=== PATIENT | male | born 1975 | race American Indian/Alaskan Native ===

== ENCOUNTER 2019-04-27 21:03 | Emergency (ER) | payer SELFPAY ==
--- NOTE | 2019-04-27 21:37 | Event Note ---
Date of service: 04/27/19 Face to Face: EMS documentation not available at time of chart dictation History obtained from patient's mother. Patient may have a history of psychiatric disease, she is not sure, he is brought to the hospital today by emergency medical services, as per mother, patient tried to jump out of a car, he's been responding to hallucinations, and he is disorganized. The patient appears to be psychotic in the emergency room. He does not exhibit decision- making capacity at this time. He is placed on a 1013 for psychosis, a psychiatric consultation is requested. He is made no endorsement of physical pain to myself or my colleagues. EKG, labs, CT scan brain pending. Mother has given verbal consent for chemical restraint if necessary. Vital Signs 04/27/19 22:00 Temperature 99.0 F Pulse Rate 93 H Respiratory 18 Rate Blood Pressure 162/111 [Left] O2 Sat by Pulse 96 Oximetry Lab Results 04/27/19 04/27/19 04/27/19 Range/Units 22:02 22:02 22:02 WBC 7.6 (4.5-11.0) K/mm3 RBC 4.34 (3.65-5.03) M/mm3 Hgb 13.4 (11.8-15.2) gm/dl Hct 40.0 (35.5-45.6) % MCV 92 (84-94) fl MCH 31 (28-32) pg MCHC 34 (32-34) % RDW 13.5 (13.2-15.2) % Plt Count 271 (140-440) K/mm3 Lymph % (Auto) 27.3 (13.4-35.0) % Mobile % (Auto) 7.7 H (0.0-7.3) % Eos % (Auto) 0.4 (0.0-4.3) % Baso % (Auto) 0.7 (0.0-1.8) % Lymph # 2.1 (1.2-5.4) K/mm3 Mobile # 0.6 (0.0-0.8) K/mm3 Eos # 0.0 (0.0-0.4) K/mm3 Baso # 0.0 (0.0-0.1) K/mm3 Seg Neutrophils % 63.9 (40.0-70.0) % Seg Neutrophils # 4.8 (1.8-7.7) K/mm3 Sodium 139 (137-145) mmol/L Potassium 2.9 L* (3.6-5.0) mmol/L Chloride 95.8 L (98-107) mmol/L Carbon Dioxide 25 (22-30) mmol/L Anion Gap 21 mmol/L BUN 15 (9-20) mg/dL Creatinine 1.0 (0.8-1.5) mg/dL Estimated GFR > 60 ml/min BUN/Creatinine Ratio 15 % Glucose 98 (75-100) mg/dL Calcium 9.6 (8.4-10.2) mg/dL Total Bilirubin 0.40 (0.1-1.2) mg/dL AST 43 H (5-40) units/L ALT 19 (7-56) units/L Alkaline Phosphatase 87 (35-129) units/L Total Creatine Kinase (55-170) units/L Troponin T < 0.010 (0.00-0.029) ng/mL Total Protein 7.1 (6.3-8.2) g/dL Albumin 4.5 (3.9-5) g/dL Albumin/Globulin Ratio 1.7 % Salicylates < 0.3 L (2.8-20.0) mg/dL Acetaminophen (10.0-30.0) ug/mL 04/27/19 04/27/19 Range/Units 22:02 22:02 WBC (4.5-11.0) K/mm3 RBC (3.65-5.03) M/mm3 Hgb (11.8-15.2) gm/dl Hct (35.5-45.6) % MCV (84-94) fl MCH (28-32) pg MCHC (32-34) % RDW (13.2-15.2) % Plt Count (140-440) K/mm3 Lymph % (Auto) (13.4-35.0) % Mobile % (Auto) (0.0-7.3) % Eos % (Auto) (0.0-4.3) % Baso % (Auto) (0.0-1.8) % Lymph # (1.2-5.4) K/mm3 Mobile # (0.0-0.8) K/mm3 Eos # (0.0-0.4) K/mm3 Baso # (0.0-0.1) K/mm3 Seg Neutrophils % (40.0-70.0) % Seg Neutrophils # (1.8-7.7) K/mm3 Sodium (137-145) mmol/L Potassium (3.6-5.0) mmol/L Chloride (98-107) mmol/L Carbon Dioxide (22-30) mmol/L Anion Gap mmol/L BUN (9-20) mg/dL Creatinine (0.8-1.5) mg/dL Estimated GFR ml/min BUN/Creatinine Ratio % Glucose (75-100) mg/dL Calcium (8.4-10.2) mg/dL Total Bilirubin (0.1-1.2) mg/dL AST (5-40) units/L ALT (7-56) units/L Alkaline Phosphatase (35-129) units/L Total Creatine Kinase 662 H (55-170) units/L Troponin T (0.00-0.029) ng/mL Total Protein (6.3-8.2) g/dL Albumin (3.9-5) g/dL Albumin/Globulin Ratio % Salicylates (2.8-20.0) mg/dL Acetaminophen < 5.0 L (10.0-30.0) ug/mL
[2019-04-27 22:24] LABS: Basophils % (Auto) 0.7 % (0.0-1.8); Eosinophils % (Auto) 0.4 % (0.0-4.3); Hemoglobin 13.4 gm/dl (11.8-15.2); Lymphocytes # (Auto) 2.1 K/mm3 (1.2-5.4); Lymphocytes % (Auto) 27.3 % (13.4-35.0); Mean Corpuscular HGB Conc 34 % (32-34); Mean Corpuscular Volume 92 fl (84-94); Monocytes # (Auto) 0.6 K/mm3 (0.0-0.8); Monocytes % (Auto) 7.7 % (0.0-7.3); Platelet Count 271 K/mm3 (140-440); Red Blood Count 4.34 M/mm3 (3.65-5.03); Red Cell Distribution Width 13.5 % (13.2-15.2)
--- NOTE | 2019-04-27 22:36 | Emergency Department Report ---
<CHANTELLE CHAWLA - Last Filed: 04/28/19 03:07> ED Psych HPI - General Chief Complaint: Nausea/Vomiting/Diarrhea Stated Complaint: AMS Time Seen by Provider: 04/27/19 21:36 Source: patient Mode of arrival: Ambulatory - History of Present Illness Initial Comments: This is a 43-year-old male brought by mother nontoxic, well nourished in appearance, no acute signs of distress presents to the ED with c/o of audio hallucinations, psychosis and suicidal ideation. Mother stated that earlier today patient called mother crying and yelling pain he cannot do this anymore. Mother stated patient has history of depression and depression with auditory hallucinations. Upon examination patient is alert and oriented 3. Mother Patient does agrees to being depressed and does not want to talk to anybody and stated that he does have auditory hallucinations. Patient stated he does want to hurt himself but does not have a plan. Mother stated that patient tried to jump from a moving car. Patient denies any homicidal ideation. Patient denies any fever, chills, nausea, vomiting, chest pain, shortness of breath, headache or stiff neck. Patient otherwise denies any symptoms. Denies any alcohol or drug consumption. Patient denies any allergies. MD Complaint: suicidal ideation, other (psychosis) -: month(s) Associated Psychiatric Symptoms: depression, suicidal ideation, racing thoughts, auditory hallucinations History of same: Yes Quality: constant Improves With: none Worsens With: none Associated Symptoms: denies other symptoms. denies: confusion, headache, shortness of breath, nausea, vomiting, syncope, insomnia If Self Harm: admits thoughts of - Related Data Allergies Allergy/AdvReac Type Severity Reaction Status Date / Time No Known Allergies Allergy Unverified 04/28/19 02:08 ED Review of Systems Constitutional: denies: chills, fever Eyes: denies: eye pain, eye discharge, vision change ENT: denies: ear pain, throat pain Respiratory: denies: cough, shortness of breath, wheezing Cardiovascular: denies: chest pain, palpitations Endocrine: no symptoms reported Gastrointestinal: denies: abdominal pain, nausea, diarrhea Genitourinary: denies: urgency, dysuria Musculoskeletal: denies: back pain, joint swelling, arthralgia Skin: denies: rash, lesions Neurological: denies: headache, weakness, paresthesias Psychiatric: depression, auditory hallucinations, suicidal thoughts. denies: anxiety, visual hallucinations, homicidal thoughts Hematological/Lymphatic: denies: easy bleeding, easy bruising ED Physical Exam - General Limitations: No Limitations General appearance: alert, in no apparent distress - Head Head exam: Present: atraumatic, normocephalic - Eye Eye exam: Present: normal appearance, PERRL, EOMI - Neck Neck exam: Present: normal inspection, full ROM. Absent: tenderness, meningismus, lymphadenopathy - Respiratory Respiratory exam: Present: normal lung sounds bilaterally. Absent: respiratory distress, wheezes, rales, rhonchi, stridor, chest wall tenderness, accessory muscle use, decreased breath sounds, prolonged expiratory - Cardiovascular Cardiovascular Exam: Present: regular rate, normal rhythm, normal heart sounds. Absent: irregular rhythm, systolic murmur, diastolic murmur, rubs, gallop - GI/Abdominal GI/Abdominal exam: Present: soft, normal bowel sounds. Absent: distended, tenderness, guarding, rebound, rigid, diminished bowel sounds - Rectal Rectal exam: Present: deferred - Extremities Exam Extremities exam: Present: normal inspection, full ROM, normal capillary refill. Absent: tenderness - Back Exam Back exam: Present: normal inspection, full ROM. Absent: tenderness, CVA tenderness (R), CVA tenderness (L), muscle spasm, paraspinal tenderness, vertebral tenderness, rash noted - Neurological Exam Neurological exam: Present: alert, oriented X3, normal gait - Expanded Neurological Exam Expanded Patient oriented to: Present: person, place, time Cranial nerves: EOM's Intact: Normal Motor strength exam: RUE: 5, LUE: 5, RLE: 5, LLE: 5 Best Eye Response (Patrick): (4) open spontaneously Best Motor Response (Patrick): (6) obeys commands Best Verbal Response ([place]): (5) oriented [place] Total: 15 - Psychiatric Psychiatric exam: Present: depressed, flat affect, suicidal ideation, other. Absent: agitated, anxious, manic, homicidal ideation - Skin Skin exam: Present: warm, dry, intact, normal color. Absent: rash ED Course - Reevaluation(s) Reevaluation #1: 04/27/19 22:39 Patient is speaking in full sentences with no signs of distress noted. ED Medical Decision Making - Lab Data Result diagrams: 04/27/19 22:02 04/27/19 22:02 - Medical Decision Making This is a 43-year-old male that presents with psychosis, delusional, and audio hallucinations. Patient is currently stable and was examined by me. Patient has been placed on 1013 and patient to be examined and evaluated by psychiatrist. He is medically cleared. Patient will remain in the ER until cleared by psychiatry. At time of admission, the patient does not seem toxic or ill in appearance. No acute signs of distress noted. Patient agrees to admission treatment plan of care. No further questions noted by the patient. - Differential Diagnosis sepsis, psychosis, drug-induced, alcohol induced, delusions, schizophrenia ED Disposition Clinical Impression: Auditory hallucinations, Delusional disorder Psychosis Qualifiers: Psychosis type: unspecified psychosis type Qualified Code(s): F29 - Unspecified psychosis not due to a substance or known physiological condition Disposition: DC/TX-65 PSY HOSP/PSY UNIT Is pt being admited?: No Condition: Stable <ALEXX SMALLS - Last Filed: 04/29/19 21:09> ED Review of Systems ROS: Stated complaint: AMS Other details as noted in HPI ED Course Vital Signs 04/27/19 04/28/19 04/28/19 22:00 07:31 15:40 Temperature 99.0 F 98.4 F 98.8 F Pulse Rate 93 H 69 91 H Respiratory 18 16 20 Rate Blood Pressure Blood Pressure 162/111 136/93 148/95 [Left] O2 Sat by Pulse 96 98 98 Oximetry 04/28/19 04/29/19 04/29/19 20:05 02:00 08:21 Temperature 98.9 F 98.6 F 98.8 F Pulse Rate 66 74 94 H Respiratory 16 16 Rate Blood Pressure Blood Pressure 136/100 146/98 127/89 [Left] O2 Sat by Pulse 97 96 99 Oximetry 04/29/19 04/29/19 04/29/19 10:36 17:08 19:15 Temperature 98.6 F 98.3 F Pulse Rate 71 75 81 Respiratory 18 Rate Blood Pressure 121/74 Blood Pressure 141/99 137/90 [Left] O2 Sat by Pulse 98 96 Oximetry - Reevaluation(s) Reevaluation #2: 04/29/19 21:08 Patient has been accepted to [facility] at this time ED Medical Decision Making - Lab Data Result diagrams: 04/27/19 22:02 04/28/19 18:14 Critical care attestation.: If time is entered above; I have spent that time in minutes in the direct care of this critically ill patient, excluding procedure time. ED Disposition Is pt being admited?: No
[2019-04-27 22:52] LABS: Alanine Aminotransferase 19 units/L (7-56); Albumin 4.5 g/dL (3.9-5); BUN/Creatinine Ratio 15; Blood Urea Nitrogen 15 mg/dL (9-20); Calcium 9.6 mg/dL (8.4-10.2); Hemolysis Index 3
[2019-04-27] MEDS: HALOPERIDOL LACTATE 5 MG/1 ML INJ IM PRN (23:21)
[2019-04-27] MEDS: LORazepam 2 MG/ML VIAL IM PRN (23:21)
[2019-04-27] MEDS ORDERED: POTASSIUM CHLORIDE ER 20 MEQ TAB PO ONE (23:30)
--- NOTE | 2019-04-28 01:03 | Cat Scan Report ---
Examination: CT of the head without contrast Clinical information: Altered mental status Comparison: None Technical: Multiple axial CT images of the head were obtained without intravenous contrast. Sagittal and coronal reformats were obtained. All CTs at this facility utilize dose reduction techniques inc luding automated exposure control, iterative reconstruction and weight based dosing when appropriate to reduce patient radiation dose to as low as reasonable achievable. Findings: There is no CT evidence of acute intracranial hemorrhage or large territorial infarct. The ventricula r system is normal in size. No extra-axial fluid collections are identified. Evaluation of bony structures demonstrates no acute calvarial abnormality. The visualized paranasal s inuses and mastoid air cells are clear. Impression: 1. No CT evidence of acute intracranial process. Signer Name: Deborah Echevarria MD Signed: 04/28/2019 12:59 AM Workstation Name: [id number]
[2019-04-28 01:32] LABS: Bacteria,Urine 1+ /HPF (Negative); Bilirubin,Urine NEG (Negative); Blood,Urine SM (Negative); Color,Urine Yellow (Yellow); Mucus,Urine 1+ /HPF
[2019-04-28 01:40] LABS: Amphetamine Screen,Urine PRESUMPTIVE NEGATIVE; Benzodiazepines Screen,Urine PRESUMPTIVE NEGATIVE; Cocaine Screen,Urine PRESUMPTIVE NEGATIVE; Methadone Screen,Urine PRESUMPTIVE NEGATIVE; Opiate Screen,Urine PRESUMPTIVE NEGATIVE
[2019-04-28 02:10] LABS: Cannabinoid Screen,Urine PRESUMPTIVE POSITIVE
--- NOTE | 2019-04-28 10:26 | Consultation ---
History of Present Illness - Reason for Consult Consult date: 04/28/19 Reason for consult: Mental Health Evaluation Requesting physician: CHANTELLE CHAWLA - Chief Complaint Chief complaint: "I was hearing voices" - History of Present Psychiatric Illness 43 y.o. AA male who presented to the ER for a mental health eval. Today the patient was calm, but appeared to have some paranoia during the assessment. He stated feeling "worried" for several months because he feels like someone is going to harm him. He stated that his thoughts exacerbate when he smoke marijuana. He stated that he felt threatened yesterday while he was in the bed with his (delusional). He stated that he asked his to get out of the bed so he can fire his gun towards the mattress. He acknowledged that he attempted to exit his car while his was driving so he could get to his mother's home "quicker." He stated, "I cannot explain what's going on with me." He stated that he took medication while in the [facility] for a mental health condition. He denies SI/HI's and VH's. He acknowledged hearing voices last night. He stated that he hear voices "often." He denies a poor appetite, but admitted to erratic sleep. He denies alcohol consumption (etoh). Medications and Allergies Allergies Allergy/AdvReac Type Severity Reaction Status Date / Time No Known Allergies Allergy Unverified 04/28/19 02:08 Active Meds: Active Medications Haloperidol Lactate (Haldol) 5 mg IM Q5H PRN PRN Reason: Agitation Last Admin: 04/27/19 23:21 Dose: 5 mg Documented by: Lorazepam (Ativan) 2 mg IM Q4HR PRN PRN Reason: Agitation Last Admin: 04/27/19 23:21 Dose: 2 mg Documented by: Potassium Chloride (K-Dur) 40 meq PO QDAY SENDY Past psychiatric history - Past Medical History Past Medical History: No medical history Past Surgical History: No surgical history - past Psychiatric treatment and history psychiatric treatment history: Hx of substance abuse. Denies a fam psy hx. - Social History Social history: lives with family Mental Status Exam - Vital signs Last Vital Signs Temp 98.4 F 04/28/19 07:31 Pulse 69 04/28/19 07:31 Resp 16 04/28/19 07:31 BP 136/93 04/28/19 07:31 Pulse Ox 98 04/28/19 07:31 - Exam Narrative exam: MSE: Appearance: in hospital attire Behavior: good eye contact Speech: regular rate and tone Mood: "okay" Affect: congruent to mood Thought Process: circumstantial Thought Content: denies SI/HI's and VH's, paranoia Motor Activity: ambulatory Cognition: A/O x 3 Insight: variable Judgment: poor Results Result Diagrams: 04/27/19 22:02 04/27/19 22:02 Abnormal lab results 04/27/19 04/27/19 04/27/19 Range/Units 22:02 22:02 22:02 [place] % (Auto) 7.7 H (0.0-7.3) % Potassium 2.9 L* (3.6-5.0) mmol/L Chloride 95.8 L (98-107) mmol/L AST 43 H (5-40) units/L Total Creatine Kinase (55-170) units/L Urine WBC (Auto) (0.0-6.0) /HPF Salicylates < 0.3 L (2.8-20.0) mg/dL Acetaminophen (10.0-30.0) ug/mL 04/27/19 04/27/19 04/28/19 Range/Units 22:02 22:02 01:00 [place] % (Auto) (0.0-7.3) % Potassium (3.6-5.0) mmol/L Chloride (98-107) mmol/L AST (5-40) units/L Total Creatine Kinase 662 H (55-170) units/L Urine WBC (Auto) 8.0 H (0.0-6.0) /HPF Salicylates (2.8-20.0) mg/dL Acetaminophen < 5.0 L (10.0-30.0) ug/mL All other labs normal. Assessment and Plan Assessment and plan: Impression: Unspecified Psychosis. Cannabis Use DO. Today the patient was calm, but appeared to have some paranoia during the assessment. K 2.9. DDx: Substance Induced Psychosis, Bipolar DO with psychosis, Schizophrenia Recommendation/Plan: Continue 1013 and start Seroquel 200 mg PO HS for psychosis. Discussed possible metabolic side effects from of Seroquel with the patient, he verbalized understanding. Baseline A1c/Lipid Panel ordered for the AM. Dispo: The patient will be referred to inpatient psy services once medically clear. Will staff with Dr Radha Mackenzie.
[2019-04-28] MEDS: POTASSIUM CHLORIDE ER 20 MEQ TAB PO SCH (11:03)
[2019-04-28 18:46] LABS: BUN/Creatinine Ratio 10; Blood Urea Nitrogen 12 mg/dL (9-20); Hemolysis Index 7
[2019-04-28] MEDS: LORazepam 2 MG/ML VIAL IM PRN (20:26)
[2019-04-28] MEDS: HALOPERIDOL LACTATE 5 MG/1 ML INJ IM PRN (20:27)
[2019-04-28] MEDS: NITROFURANTOIN MONOHYD/M-CRYST 100 MG CAP PO SCH (22:25)
[2019-04-28] MEDS: QUEtiapine 100 MG TAB PO SCH (22:25)
[2019-04-29 08:30] LABS: Chol/HDL Ratio 2.45 %
[2019-04-29] MEDS ORDERED: amLODIPine 5 MG TAB PO SCH (10:00)
[2019-04-29] MEDS: NITROFURANTOIN MONOHYD/M-CRYST 100 MG CAP PO SCH ×2 (10:31→22:05)
[2019-04-29] MEDS: POTASSIUM CHLORIDE ER 20 MEQ TAB PO SCH (10:32)
--- NOTE | 2019-04-29 10:59 | Progress Note ---
Subjective - Reason for Consult Consult date: 04/29/19 Reason for consult: Psychiatry Follow-up - Chief Complaint Chief complaint: "I think I'm okay" 43 y.o. AA male who presented to the ER for a mental health eval. Today the patient was calm during the assessment. He stated that he slept well last night, but was agitated once his left the hospital. Per the record, the patient was given prn medication. He stated, "I was upset to see her leave." He did not seem paranoid nor preoccupied during the interview. He denies SI/HI's and AVH's. He denies any side effects from his medication. Mental Status Exam - Vital signs Last Vital Signs Temp 98.8 F 04/29/19 08:21 Pulse 71 04/29/19 10:36 Resp 16 04/29/19 02:00 BP 121/74 04/29/19 10:36 Pulse Ox 99 04/29/19 08:21 - Exam Narrative exam: MSE: Appearance: calm Behavior: regular eye contact Speech: regular rate and tone Mood: "okay" Affect: congruent to mood Thought Process: circumstantial Thought Content: denies SI/HI's and AVH's Motor Activity: ambulatory Cognition: A/O x 3 Insight: variable Judgment: variable Assessment and Plan Impression: Unspecified Psychosis. Cannabis Use DO. Today the patient was calm during the assessment. K 3.5. DDx: Substance Induced Psychosis, Bipolar DO with psychosis, Schizophrenia Recommendation/Plan: Reevaluate the patient's 1013 in 24 hours. Continue Seroquel 200 mg PO HS for psychosis. Discussed possible metabolic side effects from of Seroquel with the patient, he verbalized understanding. Dispo: If the patient's 1013 is rescinded in 24 hours, he can follow up with [facility] for outpatient psy services. Staffed with Dr Radha Mackenzie.
[2019-04-29] MEDS ORDERED: IBUPROFEN 600 MG TAB PO ONE (16:47)
[2019-04-29 20:16] VITALS: BP 137/90
[2019-04-29] MEDS: QUEtiapine 100 MG TAB PO SCH (22:05)
== END 2019-04-29 22:27 ==
LOC: EEVIPCON 21:03 → ED 21:03
DX: F29 Unspecified psychosis not due to a substance or known physiological condition (principal); F22 Delusional disorders; F12.10 Cannabis abuse, uncomplicated
CPT/HCPCS: 36415; 70450; 80053; 80061; 82550; 83036; 83735; 84484; 85025; 93005; 93010; 96372; 99285; J1630; J2060; 80048; 80307; 80320; 81001; 87086; G0480